=== PATIENT | female | born 1965 | race Caucasian/White ===

== ENCOUNTER 2021-08-07 13:21 | Emergency (ER) | payer OTHER, SELFPAY ==
[2021-08-07] VITALS (21 sets, daily range): BP systolic 143–200; BP diastolic 89–116; PULSE 58–73; RESP 13–31; TEMP 36.6; O2SAT 95–98
--- NOTE | 2021-08-07 13:43 | ED_ITS ---
HPI - Neuro Symptoms/Deficit General Chief Complaint: Neuro Symptoms/Deficit Stated Complaint: Pos CVA, Ref from urgent care [place] Hbr Time Seen by Provider: 08/07/21 13:42 Source: patient Mode of arrival: Ambulatory History of Present Illness HPI Narrative: Patient is a 55-year-old female with history of posterior stroke and carotid artery dissection in 1998 presenting today with double vision for the last 4 days. She has had difficult to control blood pressure she is being worked up for pheochromocytoma vs hyperaldosterone syndrome in fact they did find an adrenal mass. She was started on doxazosin 2 or 3 weeks ago. The dose was recently increased. She started having double vision for a week ago stopped the medication 4 days ago and continues to have intermittent double vision. She denies any headache. Chest pain palpitations numbness tingling or weakness. She was seen evaluated a walk-in clinic and sent here for further evaluation. She states her normal blood pressures around 150-160 however her current blood pressure is 200/116. They are trying to get her ready to have surgery to remove it the adrenal mass. However they do need further testing. She said previously when she presented with her posterior stroke she had extreme nausea and vomiting. He is not having those symptoms today. She has no neck pain. On Anticoagulants: No Related Data Previous Rx's Medication Instructions Recorded hydralazine 10 mg tablet 10 mg PO TID #20 tab 08/07/21 Allergies Allergy/AdvReac Type Severity Reaction Status Date / Time warfarin Allergy Unknown Verified 08/07/21 15:11 Review of Systems Review of Systems Narrative: GENERAL: Denies chills, fatigue, malaise, fever, sweats, travel HEENT: See HPI RESPIRATORY: Denies dyspnea, cough, wheezing, hemoptysis, sputum. CARDIOVASCULAR: Denies chest pain, palpitations, orthopnea, edema GASTROINTESTINAL: Denies nausea, vomiting, abdominal pain, diarrhea, constipation, melena. : Denies dysuria, frequency, incontinence, hematuria, urinary retention, flank pain. MUSCULOSKELETAL: Denies weakness, joint pain, or bony pain SKIN: No rash, no erythema, no pruritus NEUROLOGIC: Denies weakness, dizziness, headache, numbness, change in speech, confusion PSYCHIATRIC: No concerning psychosocial issues. 12 point review of systems is negative except for those stated above and HPI Hematologic/Lymphatic On Anticoagulants: No Exam Initial Vital Signs Initial Vital Signs: Vital Signs Temperature 97.9 F 04/13/22 13:28 Pulse Rate 68 08/07/21 13:28 Respiratory Rate 22 08/07/21 13:28 Blood Pressure 200/116 H 08/07/21 13:28 Pulse Oximetry 97 08/07/21 13:28 GENERAL: Alert pleasant 55-year-old female no acute distress HEENT: Head atraumatic,EOMI, pupils reactive, face symmetric, moist mucous membranes CARDIOVASCULAR: Regular rate and rhythm without murmurs, rubs or gallops. RESPIRATORY: Breath sounds equal bilaterally, no wheezes rales or rhonchi. ABDOMEN: Soft, nontender. Normoactive bowel sounds all 4 quadrants. No guarding or rebound. EXTREMITIES: Normal range of motion, no clubbing or edema. Neurovascularly intact NEUROLOGICAL: Alert and oriented x4.Normal gait and speech. Cranial nerves II through XII grossly intact. Good babugq-ax-yszf, good xfrk-nw-ptja, strength equal bilaterally, no dysarthria or aphasia, sensation in tact to soft touch bilaterally, no visual changes, no facial droop SKIN: Warm, dry, no laceration, no petechiae, no rashes or lesions. Scores NIH Stroke Scale Level of Conciousness: Alert, keenly responsive Ask month/age: Answers both questions correctly. Open/close eyes, close hand: Performs both tasks correctly Best gaze horizontal: Normal Visual morton: No visual loss Facial palsy: Normal symetrical movement Left arm drift: No drift for full 10 sec Right arm drift: No drift for full 10 sec Left leg drift: No drift for full 5 sec Right leg drift: No drift for full 5 sec Limb ataxia: Absent Sensory on face/arms/legs: Normal, no sensory loss Best language: No aphasia, normal Dysarthria: Normal Extinction or inattention: No abnormality Total NIH Stroke scale score: 0 Course Orders Ordered: ED Orders 08/07/21 14:00 Complete Blood Count AUTO DIFF Stat Comprehensive Metabolic Panel Stat Lipase Stat Troponin & CK Cardiac Panel Stat 08/07/21 14:10 CT angio head and neck Stat 08/07/21 14:21 EKG-12 Lead Stat 08/07/21 15:10 Urine Culture Stat Urine Microscopic Stat Discontinued Medications Hydralazine HCl (Hydralazine 20 Mg/Ml Vial) 5 mg IV NOW ONE Stop: 08/07/21 16:46 Last Admin: 08/07/21 16:54 Dose: 5 mg Documented by: MAGDA Sodium Chloride (Normal Saline 0.9%) 1,000 mls @ 150 mls/hr IV CONT CHAD Last Admin: 08/07/21 14:25 Dose: 150 mls/hr Documented by: MAGDA Labetalol HCl (Labetalol 20 Mg/4 Ml Syringe) 10 mg IV NOW ONE Stop: 08/07/21 15:09 Last Admin: 08/07/21 15:29 Dose: 10 mg Documented by: MAGDA Vital Signs Vital signs: Vital Signs - 8 hr 08/07/21 13:28 08/07/21 13:52 08/07/21 13:53 Temperature 97.9 F Pulse Rate 68 73 65 Respiratory Rate 22 13 15 Blood Pressure 200/116 H 143/89 H Pulse Oximetry 97 98 08/07/21 14:00 08/07/21 14:30 08/07/21 15:00 Temperature Pulse Rate 64 62 65 Respiratory Rate 23 22 14 Blood Pressure 194/104 H 189/100 H Pulse Oximetry 98 96 95 08/07/21 15:15 08/07/21 15:30 08/07/21 15:40 Temperature Pulse Rate 68 59 L 58 L Respiratory Rate 15 13 14 Blood Pressure 195/97 H 170/97 H 152/92 H Pulse Oximetry 98 97 95 08/07/21 15:50 08/07/21 16:00 08/07/21 16:10 Temperature Pulse Rate 60 60 62 Respiratory Rate 17 15 20 Blood Pressure 156/96 H 156/94 H 162/101 H Pulse Oximetry 95 95 95 08/07/21 16:20 08/07/21 16:30 08/07/21 16:40 Temperature Pulse Rate 63 62 69 Respiratory Rate 18 17 20 Blood Pressure 162/101 H 170/107 H 192/114 H Pulse Oximetry 96 96 97 08/07/21 16:50 08/07/21 16:54 08/07/21 17:00 Temperature Pulse Rate 62 62 65 Respiratory Rate 19 31 H Blood Pressure 170/100 H 170/100 H 162/91 H Pulse Oximetry 96 96 08/07/21 17:10 08/07/21 17:20 08/07/21 17:30 Temperature Pulse Rate 65 68 66 Respiratory Rate 19 19 19 Blood Pressure 169/95 H Pulse Oximetry 96 96 97 MDM - Neuro Symptoms/Deficit Lab Data Result diagrams: 08/07/21 14:00 08/07/21 14:00 Labs: Lab Results 08/07/21 08/07/21 08/07/21 Range/Units 14:00 14:00 15:10 WBC 8.6 (4.5-11.0) X10^3/uL RBC 4.44 (4.0-5.2) X10^6/uL Hgb 13.0 (12.0-16.0) g/dL Hct 38.8 (36-46) % MCV 87.3 (80-100) fL MCH 29.2 (26-34) PG MCHC 33.4 (30-36) % RDW 13.5 (11.6-14.8) % Plt Count 300 (150-400) X10^3/uL Neut % (Auto) 68.7 (50-75) % Lymph % (Auto) 21.5 L (25-40) % [place] % (Auto) 7.5 (3-14) % Eos % (Auto) 1.3 L (2-4) % Baso % (Auto) 1.0 (0-2) % Neut # (Auto) 5900 (0860-4854) /uL Lymph # (Auto) 1900 (0535-3634) /uL [place] # (Auto) 600 (0-900) /uL Eos # (Auto) 100 (0-450) /uL Baso # (Auto) 100 (0-100) /uL Sodium 143 (137-145) mmol/L Potassium 2.9 L (3.4-5.1) mmol/L Chloride 102 (98-107) mmol/L Carbon Dioxide 32 (22-32) mmol/L BUN 12 (7-17) mg/dL Creatinine 0.72 (0.52-1.04) mg/dL Estimated GFR > 60 (>60) mL/min BUN/Creatinine Ratio 16.7 (6-22) Glucose 96 (70-100) mg/dL Calcium 8.7 (8.4-10.2) mg/dL Total Bilirubin 0.4 (0.2-1.3) mg/dL AST 24 (14-36) IU/L ALT 17 (<35) IU/L Alkaline Phosphatase 58 (38-126) U/L Total Creatine Kinase 79 (30-135) U/L CK-MB (CK-2) TNP CK-MB (CK-2) Rel Index TNP Troponin I < 0.012 (0.01-0.034) ng/mL Total Protein 8.0 (6.3-8.2) g/dL Albumin 4.8 (3.5-5.0) g/dL Globulin 3.2 (1.7-4.1) g/dL Albumin/Globulin Ratio 1.5 (1.0-2.8) Lipase 170 (23-300) U/L Urine RBC None seen (0-5/HPF) Urine WBC 5-10/hpf H (0-5/HPF) Ur Squamous Epith Cells 5-10 /hpf H (0-5/HPF) Amorphous Sediment 2+ Urine Bacteria Few (2-10) H (None) Ur Culture Indicated? Cult not indicated Urine Dip Bedside Urine Glucose Negative Bedside Urine Bilirubin - Negative Bedside Urine Ketone +/- 5 Urine Specific [place] 1.015 Bedside Urine Occult Blood +++ Bedside Urine pH 6.5 Bedside Urine Protein +/- 15 Bedside Urine Urobilinogen - Negative Bedside Urine Nitrite - Negative Bedside Urine Leukocytes - Negative Esterase Imaging Data CTA - brain/neck: Radiologist's Impression: Signed Patient: Cheryl Taylor MR#: [id number] : 1965 Acct:[id number] Age/Sex: 55 / F Date of Service: 08/07/21 Loc: Accession Number: [id number] ?? Procedure: CT angio head and neck Ordering Provider: Leonela Castellon D.O. PROCEDURE:? CT ANGIO HEAD AND NECK ? INDICATIONS:? double vision ? TECHNIQUE:? Pre-contrast 4.5 mm thick sections acquired from the foramen magnum to the vertex.? After the administration of intravenous contrast, 1 mm thick sections acquired from the aortic arch through the [place].? Post-contrast 4.5 mm thick sections then re-acquired from the foramen magnum to the vertex.? 3-dimensional klvsfkh-ofitdbixb-rewqepxyju (MIP) and/or volume rendering reformats were acquired of the central intracranial vasculature and neck separately. For radiation dose reduction, the following was used:? automated exposure control, adjustment of mA and/or kV according to patient size.? ? COMPARISON:? None. ? FINDINGS:? Image quality:? Excellent.? ? BRAIN:? CSF spaces:? Ventricles are normal in size and shape.? Basal cisterns are patent.? No extra-axial fluid collections.? ? Brain:? No midline shift.? No intracranial bleeds or masses.? García-white matter interface appears intact.? There is low attenuation within the left parietal occipital lobe with ex vacuo dilation of the posterior horn of the left lateral ventricle.? No priors are available for comparison. ? Skull and face:? Calvarium and facial bones appear intact, without suspicious le sions.? Orbits appear normal.? ? Sinuses:? Sinuses and mastoids are clear.? ? HEAD CT ANGIOGRAPHY:? Anterior circulation:? Intracranial internal carotid arteries are normal in size and flow.? The flow within the paired anterior cerebral arteries is normal and symmetric.? The flow within the middle cerebral arteries is normal and symmetric.? The anterior communicating artery is seen.? No aneurysms are seen.? ? Posterior circulation:? Visualized portions of the vertebral arteries demonstrate normal caliber, and join to form a normal appearing basilar artery.? Flow within the posterior cerebral arteries is normal and symmetric.? No aneurysms are seen.? There is a slight right vertebral artery dominance. ? NECK CT ANGIOGRAPHY:? Carotid system:? The great vessels demonstrate a conventional anatomy as they arise from the aortic arch.? The origins of the common carotid arteries appear patent.? The common carotid arteries demonstrate normal caliber and courses.? The bifurcation regions are both widely patent.? The internal carotid arteries demonstrate normal calibers and courses.? ? Posterior circulation:? The origins of the vertebral arteries both appear widely patent.? The more superior extracranial portions of both vertebral arteries also demonstrate normal courses and calibers.? They join to form a normal appearing basilar artery.? ? Soft tissues:? Visualized neck soft tissues demonstrate no suspicious abnormalities.? Thyroid gland is enlarged bilaterally with multiple areas of heterogeneous attenuation most notable on the right. ? Bones:? No suspicious bony lesions.? Visualized cervical spine appears normally aligned.? IMPRESSION:? ? Low attenuation within the left parietal occipital lobe consistent with old infarction.? If this anatomic region is of concern for current symptoms, small area of superimposed subacute ischemia cannot be excluded and MRI is recommended for further evaluation. ? No areas of hemodynamically significant stenosis, vascular occlusion or a neurysmal dilation within the anterior or posterior circulation. ? No areas of hemodynamically significant stenosis, vascular occlusion or aneurysmal dilation within the neck vasculature. ? Heterogeneous appearance of the thyroid gland as above.? Thyroid ultrasound is recommended on nonemergent basis for further evaluation. ? Any quantitative measurements of stenosis were performed using NASCET criteria.? ? ? Dictated by: Savannah Wells M.D. on 08/07/2021 at 15:32 ? ? ECG Data Interpretation: Normal sinus rhythm rate 63 CO interval 146 QRS 88 QTC 440, no priors MDM Narrative Medical decision making narrative: Patient has blurry vision off and on his unlikely to be stroke. Doxazosin is known to cause blurry vision this is probably a reaction from that. She has no focal deficits. Blood pressure is noted to be persistently elevated. His it d id improve with 1 dose of labetalol. Discussion with endocrinology states that she is actually being worked up for hyper aldosterone syndrome. She does recommend discharging patient home on hydralazine until they speak with her tomorrow. [id number] Dr. Esquivel, magnetic grinder operator updated patient's symptoms test results she has reviewed patient's chart. At this time states his to avoid diuretics. Recomme nd hydralazine at discharged and will follow-up with patient. Discharge Plan Departure Patient Disposition: Home Clinical Impression: Adverse drug reaction, Hypertension Instructions: Essential Hypertension, DI for Adverse Drug Reaction -- Other Activity Restrictions/Additional Instructions: *You have been diagnosed with drug reaction and high blood pressure *What to do: At this time it is likely doxazosin causing your blurry vision. However her blood pressure remained quite high. I have discussed case with on- call endocrinology who recommends hydralazine. They will also touch base with you tomorrow *Continue to take medications as directed Hydralazine 10 mg 4 times a day *Follow up with your primary care provider in 2-3 days or call [phone] Please follow-up with your magnetic grinder operator, expect them to call you tomorrow *Return to ER if you should have blurry vision numbness tingling weakness headache chest pain shortness of breath persistent blood pressure greater than 190/100 or any new, worsening or concerning symptoms Prescriptions: New hydralazine 10 mg tablet 10 mg PO TID Qty: 20 0RF Referrals: Jaylyn Esquivel MD [Non-Staff] -
--- NOTE | 2021-08-07 14:10 | DI.CT.S_ITS ---
PROCEDURE: CT ANGIO HEAD AND NECK INDICATIONS: double vision TECHNIQUE: Pre-contrast 4.5 mm thick sections acquired from the foramen magnum to the vertex. After the administration of intravenous contrast, 1 mm thick sections acquired from the aortic arch through the [place] of [place]. Post-contrast 4.5 mm thick sections then re-acquired from the foramen magnum to the vertex. 3-dimensional nkbjanm-sgxzarood-tnvmdbyrtd (MIP) and/or volume rendering reformats were acquired of the central intracranial vasculature and neck separately. For radiation dose reduction, the following was used: automated exposure control, adjustment of mA and/or kV according to patient size. COMPARISON: None. FINDINGS: Image quality: Excellent. BRAIN: CSF spaces: Ventricles are normal in size and shape. Basal cisterns are patent. No extra-axial fluid collections. Brain: No midline shift. No intracranial bleeds or masses. García-white matter interface appears intact. There is low attenuation within the left parietal occipital lobe with ex vacuo dilation of the posterior horn of the left lateral ventricle. No priors are available for comparison. Skull and face: Calvarium and facial bones appear intact, without suspicious lesions. Orbits appear normal. Sinuses: Sinuses and mastoids are clear. HEAD CT ANGIOGRAPHY: Anterior circulation: Intracranial internal carotid arteries are normal in size and flow. The flow within the paired anterior cerebral arteries is normal and symmetric. The flow within the middle cerebral arteries is normal and symmetric. The anterior communicating artery is seen. No aneurysms are seen. Posterior circulation: Visualized portions of the vertebral arteries demonstrate normal caliber, and join to form a normal appearing basilar artery. Flow within the posterior cerebral arteries is normal and symmetric. No aneurysms are seen. There is a slight right vertebral artery dominance. NECK CT ANGIOGRAPHY: Carotid system: The great vessels demonstrate a conventional anatomy as they arise from the aortic arch. The origins of the common carotid arteries appear patent. The common carotid arteries demonstrate normal caliber and courses. The bifurcation regions are both widely patent. The internal carotid arteries demonstrate normal calibers and courses. Posterior circulation: The origins of the vertebral arteries both appear widely patent. The more superior extracranial portions of both vertebral arteries also demonstrate normal courses and calibers. They join to form a normal appearing basilar artery. Soft tissues: Visualized neck soft tissues demonstrate no suspicious abnormalities. Thyroid gland is enlarged bilaterally with multiple areas of heterogeneous attenuation most notable on the right. Bones: No suspicious bony lesions. Visualized cervical spine appears normally aligned. IMPRESSION: Low attenuation within the left parietal occipital lobe consistent with old infarction. If this anatomic region is of concern for current symptoms, small area of superimposed subacute ischemia cannot be excluded and MRI is recommended for further evaluation. No areas of hemodynamically significant stenosis, vascular occlusion or aneurysmal dilation within the anterior or posterior circulation. No areas of hemodynamically significant stenosis, vascular occlusion or aneurysmal dilation within the neck vasculature. Heterogeneous appearance of the thyroid gland as above. Thyroid ultrasound is recommended on nonemergent basis for further evaluation. Any quantitative measurements of stenosis were performed using NASCET criteria. Dictated by: Savannah Wells M.D. on 08/07/2021 at 15:32 Approved by: Savannah Wells M.D. on 08/07/2021 at 15:36
[2021-08-07 14:21] LABS: Add Manual Diff / Slide Review NO; Basophils Absolute Auto 100 /uL (0-100); Eosinophils Absolute Auto 100 /uL (0-450); Eosinophils Percent Auto 1.3 % (2-4); Hematocrit 38.8 % (36-46); Lymphocytes Absolute Auto 1900 /uL (1100-4500); Lymphocytes Percent Auto 21.5 % (25-40); Mean Corpuscular HGB Conc 33.4 % (30-36); Mean Corpuscular Hemoglobin 29.2 PG (26-34); Mean Corpuscular Volume 87.3 fL (80-100); Monocytes Absolute Auto 600 /uL (0-900); Monocytes Percent Auto 7.5 % (3-14); Neutrophils Absolute Auto 5900 /uL (1500-7000); Neutrophils Percent Auto 68.7 % (50-75); Platelet Count 300 X10^3/uL (150-400); Red Blood Cell Count 4.44 X10^6/uL (4.0-5.2); Red Cell Distribution Width 13.5 % (11.6-14.8); White Blood Cell Count 8.6 X10^3/uL (4.5-11.0)
[2021-08-07] MEDS: SODIUM CHLORIDE 0.9% 1,000 ML 150 ML IV (14:25)
[2021-08-07 14:28] LABS: Alanine Aminotransferase 17 IU/L (<35); Albumin 4.8 g/dL (3.5-5.0); Albumin Globulin Ratio 1.5 (1.0-2.8); Alkaline Phosphatase 58 U/L (38-126); Aspartate Aminotransferase 24 IU/L (14-36); BUN Creatinine Ratio 16.7 (6-22); Bilirubin Total 0.4 mg/dL (0.2-1.3); Blood Urea Nitrogen 12 mg/dL (7-17); Calcium 8.7 mg/dL (8.4-10.2); Carbon Dioxide 32 mmol/L (22-32); Chloride 102 mmol/L (98-107); Creatine Kinase 79 U/L (30-135); Estimated Glomerular Filt Rate > 60 mL/min (>60); Globulin 3.2 g/dL (1.7-4.1); Glucose 96 mg/dL (70-100); HEMOLYSIS < 15 (0-50); Lipase 170 U/L (23-300); Potassium 2.9 mmol/L (3.4-5.1); Sodium 143 mmol/L (137-145)
[2021-08-07 14:40] LABS: Troponin I < 0.012 ng/mL (0.01-0.034)
[2021-08-07] MEDS: LABETALOL 20 MG/4 ML SYRINGE 10 MG IV (15:29)
[2021-08-07 15:49] LABS: Amorphous Sediment Urine 2+; Bacteria Urine Few (2-10); Culture Indicated Urine Cult Not Indicated; RBC Urine None Seen (0-5/HPF); Squamous Epithelial Cell Urine 5-10 /HPF (0-5/HPF); WBC Urine 5-10/HPF (0-5/HPF)
[2021-08-07] MEDS: HYDRALAZINE 20 MG/ML VIAL 5 MG IV (16:54)
== END 2021-08-07 17:49 | disposition home or self-care (01) ==
PROVIDERS: Emergency Provider Emergency Medicine
DX: H53.2 Diplopia (principal); I10 Essential (primary) hypertension; T44.6X5A Adverse effect of alpha-adrenoreceptor antagonists, initial encounter; Z86.73 Personal history of transient ischemic attack (TIA), and cerebral infarction without residual deficits
CPT/HCPCS: 36415; 70496; 70498; 80053; 81003; 81015; 82550; 83690; 84484; 85025; 87086; 93005; 93010; 96374; 96375; 99284; J0360; Q9967